=== PATIENT | female | born 1930 | race Caucasian/White ===

== ENCOUNTER 2017-09-06 15:08 | Observation (INO) | payer OTHER ==
[~2017-09-06] VITALS: Ht 154.9 cm; Wt 69.0 kg
[~2017-09-06 15:08] MED LIST: ALBU8.5H8 INH; ALPR0.5T6 PO; BUDE10.2 INH; CEFD300C37 PO; FISH OIL PO; GABA300C10 PO; HYDR-3241 PO; NAPR-685 PO; OMEP-110 PO; SIMV20TA3 PO; TIOT18CA INH; TRIA1TAB5 PO; VITAMIN B PO; VITAMIN C PO; VITAMIN D PO; [UNRECOGNIZED DRUG - OTHER] PO
[2017-09-06] MEDS ORDERED: ASPIRIN 81 MG TABLET CHEW PO ONE (15:30)
[2017-09-06] MEDS ORDERED: ASPIRIN 81 MG TABLET CHEW ONE (16:02)
[2017-09-06 16:04] LABS: BASOPHILS # (AUTO) 0.03 x10^3/uL (0-0.1); BASOPHILS % (AUTO) 1 % (0-1); EOSINOPHILS # (AUTO) 0.14 x10^3/uL (0-0.4); EOSINOPHILS % (AUTO) 2 % (1-7); LYMPHOCYTES # (AUTO) 1.97 x10^3/uL (1-3.4); LYMPHOCYTES % (AUTO) 34 % (22-44); MD NO; MEAN CORPUSCULAR HEMOGLOBIN 31.1 pg (27.0-34.8); MEAN CORPUSCULAR HGB CONC 33.4 g/dL (32.4-35.8); MEAN CORPUSCULAR VOLUME 93.3 fL (80-100); MEAN PLATELET VOLUME 7.6 fL (7.4-10.4); MONOCYTES # (AUTO) 0.45 x10^3/uL (0.2-0.8); MONOCYTES % (AUTO) 8 % (2-9); NEUTROPHILS % (AUTO) 56 % (42-75); PLATELET COUNT 237 x10^3/uL (130-400); RED BLOOD COUNT 4.53 x10^6/uL (3.82-5.3); RED CELL DISTRIBUTION WIDTH 13.2 % (9.6-15.2)
[2017-09-06 16:11] LABS: ALANINE AMINOTRANSFERASE 31 U/L (12-78); ALBUMIN 3.5 g/dL (3.4-5.0); ANION GAP 7 mmol/L (5-15); CALCIUM 8.5 mg/dL (8.5-10.1); CHLORIDE 108 mmol/L (98-107); CREATININE 1.06 mg/dL (0.55-1.02)
[2017-09-06] MEDS ORDERED: ALPR-475 PO (16:12)
[2017-09-06] MEDS ORDERED: MELO15TA24 PO (16:12)
[2017-09-06] MEDS ORDERED: ELLIPTA (16:12)
[2017-09-06 16:16] LABS: ALKALINE PHOSPHATASE 61 U/L (45-117); BILIRUBIN,TOTAL 0.5 mg/dL (0.2-1.0); TOTAL PROTEIN 6.4 g/dL (6.4-8.2); TROPONIN I < 0.015 ng/mL (0.000-0.045)
[2017-09-06] MEDS ORDERED: HEPARIN 5,000 UNITS/ML, 1ML ONE (17:50)
[2017-09-06] MEDS: HEPARIN 5,000 UNITS/ML, 1ML SQ SCH (17:53)
[2017-09-06] MEDS ORDERED: BISACODYL 10 MG SUPP PR PRN (18:00)
[2017-09-06] MEDS ORDERED: ACETAMINOPHEN 650 MG/20.3 ML UDC PO PRN (18:00)
[2017-09-06] MEDS ORDERED: NITROGLYCERIN SINGLE TAB 0.4 MG SL PRN (18:00)
[2017-09-06] MEDS ORDERED: SODIUM CHLORIDE FLUSH 10ML SYR IVF ONE (18:00)
[2017-09-06 18:10] LABS: CHOL/HDL RATIO 3.9; LDL/HDL RATIO 2.1 (0.5-3.0)
[2017-09-06] MEDS ORDERED: TRANEXAMIC ACID 100 MG/ML, 10ML ONE (18:20)
[2017-09-06 19:04] VITALS: BP 180/73
[2017-09-06] MEDS: GABAPENTIN 300 MG CAPSULE PO SCH (20:30)
[2017-09-06] MEDS: TRIAMTERENE/HCTZ 75/50MG TABLET PO SCH (20:30)
[2017-09-06] MEDS: SODIUM CHLORIDE FLUSH 10ML SYR IVF SCH (20:31)
[2017-09-06] MEDS ORDERED: ATORVASTATIN 20 MG TABLET PO SCH (21:00)
[2017-09-06 23:01] LABS: TROPONIN I < 0.015 ng/mL (0.000-0.045)
[2017-09-07 02:26] VITALS: BP 157/67
[2017-09-07] MEDS ORDERED: LABETALOL 5MG/ML, 20ML IVPush PRN (02:30)
[2017-09-07 05:09] LABS: TROPONIN I < 0.015 ng/mL (0.000-0.045)
[2017-09-07] MEDS: HEPARIN 5,000 UNITS/ML, 1ML SQ SCH (05:49)
[2017-09-07 07:28] LABS: ANION GAP 9 mmol/L (5-15); CALCIUM 8.3 mg/dL (8.5-10.1); CHLORIDE 110 mmol/L (98-107); CREATININE 1.08 mg/dL (0.55-1.02)
[2017-09-07 07:29] VITALS: BP 160/71
[2017-09-07 07:59] VITALS: BP 160/74
[2017-09-07] MEDS: GABAPENTIN 300 MG CAPSULE PO SCH ×2 (08:23→15:43)
[2017-09-07] MEDS: TRIAMTERENE/HCTZ 75/50MG TABLET PO SCH (08:23)
[2017-09-07] MEDS: SODIUM CHLORIDE FLUSH 10ML SYR IVF SCH (08:23)
[2017-09-07] MEDS ORDERED: TRIAMTERENE/HCTZ 75/50MG TABLET PO SCH (09:00)
[2017-09-07] MEDS ORDERED: OMEPRAZOLE 20 MG CAPSULE.DR PO SCH (09:00)
[2017-09-07] MEDS ORDERED: MELOXICAM 15 MG TABLET PO SCH (09:00)
[2017-09-07] MEDS ORDERED: FLUT1BLS3 INH (12:05)
[2017-09-07 12:54] VITALS: BP 151/62
== END 2017-09-07 16:15 | disposition home or self-care (01) ==
LOC: ED 16:41 → EDIP 17:40 → 5SO 18:37 → DCLOUNGE 09-07 16:08
PROVIDERS: ADMIT Student in an Organized Health Care Education/Training Program; ATTEND Student in an Organized Health Care Education/Training Program
DX: R07.2 Precordial pain (principal); E11.22 Type 2 diabetes mellitus with diabetic chronic kidney disease; E78.5 Hyperlipidemia, unspecified; F41.9 Anxiety disorder, unspecified; J44.9 Chronic obstructive pulmonary disease, unspecified; I12.9 Hypertensive chronic kidney disease with stage 1 through stage 4 chronic kidney disease, or unspecified chronic kidney disease; N18.3 Chronic kidney disease, stage 3 (moderate); Z79.82 Long term (current) use of aspirin
CPT/HCPCS: 36415; 71045; 80048; 80053; 80061; 83880; 84484; 85025; 93005; 93306; 93971; 96372; 99285; G0378; J1644